=== PATIENT | male | born 1980 | race Caucasian/White ===

== ENCOUNTER 2022-05-20 13:48 | Inpatient (IN) | payer OTHER ==
[~2022-05-20] VITALS: Ht 177.8 cm; Wt 101.0 kg
[2022-05-20] MEDS ORDERED: LORazepam 2 mg/ml vial IM ONE (14:45)
[2022-05-20] MEDS ORDERED: ondansetron/PF 4mg/2ml inj IV ONE (14:55)
[2022-05-20] MEDS ORDERED: LORazepam 2 mg/ml vial IV ONE ×2 (14:55→16:30)
[2022-05-20] MEDS ORDERED: normal saline 1000ML IV soln IVB ONE (15:05)
[2022-05-20 15:18] LABS: BASOPHILS # (AUTO) 0.1 X10'3 (0-0.2); EOSINOPHILS % (AUTO) 0.1 % (0-6); HEMOGLOBIN 16.1 g/dl (14.0-17.9); LYMPHOCYTES # (AUTO) 1.8 X10'3 (1.1-4.8); RED CELL DISTRIBUTION WIDTH 13.7 % (11.5-14.5); WHITE BLOOD COUNT 11.4 X10'3 (4.5-11.0)
[2022-05-20 15:19] LABS: BASOPHILS % (AUTO) 0.9 % (0-1); HEMATOCRIT 47.9 % (42.0-52.0); MEAN CORPUSCULAR HEMOGLOBIN 33.5 PG (27.0-31.0); MEAN CORPUSCULAR HGB CONC 33.6 g/dL (33.0-36.5); MEAN CORPUSCULAR VOLUME 99.9 FL (78-98); MEAN PLATELET VOLUME 7.8 FL (7.4-10.4); MONOCYTES # (AUTO) 1.3 X10'3 (0-0.9); MONOCYTES % (AUTO) 11.1 % (2-12); NEUTROPHILS # (AUTO) 8.2 X10'3 (1.8-7.7); NEUTROPHILS % (AUTO) 71.9 % (42-75); PLATELET COUNT 197 X10'3 (140-440)
[2022-05-20 15:25] LABS: ALANINE AMINOTRANSFERASE 151 U/L (12-78); ALBUMIN 4.7 G/DL (3.4-5.0); ALBUMIN/GLOBULIN RATIO 1.2 (1.1-1.5); ALKALINE PHOSPHATASE 75 IU/L (46-116); ANION GAP 33 (8-16); ASPARTATE AMINO TRANSFERASE 189 U/L (10-37); BILIRUBIN,TOTAL 1.8 MG/DL (0.1-1.0); BLOOD UREA NITROGEN 10 MG/DL (7-18); BUN/CREATININE RATIO 7.5 (5.4-32.0); CHLORIDE 94 MMOL/L (99-107); CREATININE 1.33 MG/DL (0.60-1.10); ETHANOL < 0.010 GM/DL (0.0-0.010); GLUCOSE 143 MG/DL (70-104); LIPASE 356 U/L (73-393); SODIUM 139 MMOL/L (135-145); TOTAL PROTEIN 8.7 G/DL (6.4-8.2); eGFR 59 ML/MIN
[2022-05-20 15:30] LABS: POTASSIUM 3.7 MMOL/L (3.5-5.1)
[2022-05-20 15:31] LABS: TOTAL CARBON DIOXIDE 12.3 MMOL/L (24-32)
--- NOTE | 2022-05-20 16:17 | NUR ---
Pt came in to the ER to try and stop drinking. While in triage the pt had a seizure and was rushed back to the ER. The pt was given ativan and placed on the monitor.
--- NOTE | 2022-05-20 16:18 | NUR ---
the pt stated that he drinks a pint of alcohol a day.
[2022-05-20 16:42] LABS: TOTAL CELLS COUNTED 100
[2022-05-20 16:43] LABS: PLATELET ESTIMATE NORMAL; STOMATOCYTES 1+
[2022-05-20 17:05] LABS: CLARITY,URINE CLOUDY (Clear); COLOR,URINE YELLOW (Yellow); GLUCOSE, URINE NEGATIVE (Neg); KETONES,URINE 15 mg/dl (Neg); LEUKOCYTE ESTERASE ,URINE NEGATIVE (Neg); OCCULT BLOOD,URINE SMALL (Neg); PH,URINE 7.5 (4.8-8.0); PROTEIN,URINE >=300 mg/dl (Neg)
[2022-05-20 17:07] LABS: NITRITES, URINE NEGATIVE (Neg); UA COLLECTION TYPE CLN CATCH MIDSTREAM
[2022-05-20 17:14] LABS: MUCUS STRANDS MANY /LPF (Neg); SQUAMOUS EPITHELIAL CELL,UR FEW /LPF (FEW)
[2022-05-20 17:15] LABS: BACTERIA,URINE 1+ /HPF (Neg)
[2022-05-20 17:16] LABS: RBC,URINE 0-2 /HPF (0-2); WBC,URINE 0-4 /HPF (0-4)
[2022-05-20 17:17] LABS: CAL OXALATE CRYSTALS 1+ /HPF (NEGATIVE)
[2022-05-20 17:18] LABS: URINE AMPHETAMINE SCREEN NEGATIVE (Neg); URINE BARBITUATE SCREEN NEGATIVE (Neg); URINE BENZODIAZEPINES SCREEN NEGATIVE (Neg); URINE CANNABINOID SCREEN NEGATIVE (Neg); URINE COCAINE SCREEN NEGATIVE (Neg); URINE METHADONE SCREEN NEGATIVE (Neg); URINE OPIATE SCREEN NEGATIVE (Neg); URINE PHENCYCLIDINE SCREEN NEGATIVE (Neg)
--- NOTE | 2022-05-20 17:24 | NUR ---
Pt stated that his left ankle has been hurting since last night
[2022-05-20] MEDS ORDERED: thiamine 100mg tablet PO ONE (17:30)
[2022-05-20] MEDS ORDERED: folic acid 1mg tablet PO ONE (17:30)
[2022-05-20] MEDS ORDERED: potassium Cl 20 mEq SR tablet PO PRN (18:15)
[2022-05-20] MEDS ORDERED: acetaminophen 325mg tablet PO PRN (18:15)
[2022-05-20] MEDS ORDERED: magnesium 4gm in 100ml NS 100 ML IV PRN (18:15)
[2022-05-20] MEDS ORDERED: dextrose 50%-water 50ml dispensing syringe IV PRN (18:15)
[2022-05-20] MEDS ORDERED: ondansetron/PF 4mg/2ml inj IV PRN (18:15)
[2022-05-20] MEDS ORDERED: potassium Cl 40MEQ/1/2NS 520ml 520 ML IV PRN (18:15)
[2022-05-20] MEDS ORDERED: magnesium Cl slow-release 64mg tablet PO PRN (18:15)
[2022-05-20] MEDS ORDERED: haloperidol lactate 5mg/ml inj IM PRN (18:15)
[2022-05-20] MEDS ORDERED: LORazepam 2 mg/ml vial IV PRN (18:15)
--- NOTE | 2022-05-20 18:33 | NUR ---
TALKED TO SIMON ABOUT ADMISSION ON BED 16
[2022-05-20 18:45] LABS: MAGNESIUM 1.2 MG/DL (1.5-2.4)
[2022-05-20] MEDS: HYDROcodone/acetaminophen 5mg/325mg tablet PO PRN ×2 (19:40→21:51)
[2022-05-20] MEDS: LORazepam 2 mg/ml vial IV PRN ×2 (19:40→22:47)
[2022-05-20] MEDS: normal saline 1000ml 1,000 ML IV SCH (19:48)
[2022-05-20] MEDS: thiamine 100mg/ml 2ml inj. IV SCH (20:44)
[2022-05-20] MEDS: K and/or MAG REPLACEMENT MC SCH (20:44)
--- NOTE | 2022-05-20 22:53 | NUR ---
PT MOVED TO HOSPITAL BED, PT GIVEN 2 MG ATIVAN
[2022-05-20 23:32] LABS: ALBUMIN 3.5 G/DL (3.4-5.0); ANION GAP 12 (8-16); BLOOD UREA NITROGEN 8 MG/DL (7-18); BUN/CREATININE RATIO 8.4 (5.4-32.0); CALCIUM 7.6 MG/DL (8.5-10.1); CHLORIDE 99 MMOL/L (99-107); CREATININE 0.95 MG/DL (0.60-1.10); GLUCOSE 117 MG/DL (70-104); POTASSIUM 3.2 MMOL/L (3.5-5.1); SODIUM 137 MMOL/L (135-145); TOTAL CARBON DIOXIDE 26.5 MMOL/L (24-32); eGFR 87 ML/MIN
[2022-05-21] MEDS: LORazepam 2 mg/ml vial IV PRN ×5 (02:18→20:32)
[2022-05-21] MEDS: HYDROcodone/acetaminophen 5mg/325mg tablet PO PRN ×4 (04:35→19:19)
[2022-05-21 05:30] LABS: BASOPHILS % (AUTO) 0.6 % (0-1); EOSINOPHILS % (AUTO) 0.6 % (0-6); HEMOGLOBIN 12.8 g/dl (14.0-17.9); LYMPHOCYTES # (AUTO) 0.6 X10'3 (1.1-4.8); LYMPHOCYTES % (AUTO) 13.2 % (21-51); MEAN CORPUSCULAR HEMOGLOBIN 33.3 PG (27.0-31.0); MEAN CORPUSCULAR HGB CONC 34.6 g/dL (33.0-36.5); MEAN CORPUSCULAR VOLUME 96.1 FL (78-98); MEAN PLATELET VOLUME 7.3 FL (7.4-10.4); MONOCYTES # (AUTO) 0.4 X10'3 (0-0.9); MONOCYTES % (AUTO) 10.3 % (2-12); NEUTROPHILS # (AUTO) 3.2 X10'3 (1.8-7.7); NEUTROPHILS % (AUTO) 75.3 % (42-75); PLATELET COUNT 122 X10'3 (140-440); RED BLOOD COUNT 3.85 X10'6 (4.70-6.10); RED CELL DISTRIBUTION WIDTH 13.8 % (11.5-14.5); WHITE BLOOD COUNT 4.3 X10'3 (4.5-11.0)
[2022-05-21 05:41] LABS: ALBUMIN 3.3 G/DL (3.4-5.0); ANION GAP 13 (8-16); BLOOD UREA NITROGEN 7 MG/DL (7-18); CALCIUM 7.4 MG/DL (8.5-10.1); CHLORIDE 102 MMOL/L (99-107); CREATININE 0.88 MG/DL (0.60-1.10); GLUCOSE 117 MG/DL (70-104); MAGNESIUM 1.1 MG/DL (1.5-2.4); SODIUM 140 MMOL/L (135-145); TOTAL CARBON DIOXIDE 24.9 MMOL/L (24-32); eGFR > 90 ML/MIN
[2022-05-21] MEDS: normal saline 1000ml 1,000 ML IV SCH ×3 (07:41→20:00)
[2022-05-21] MEDS: folic acid 1mg/0.2ml inj IV SCH (08:00)
[2022-05-21 08:28] VITALS: BP 139/95
[2022-05-21] MEDS: potassium Cl 20 mEq SR tablet PO PRN ×3 (08:46→19:20)
[2022-05-21] MEDS: K and/or MAG REPLACEMENT MC SCH ×2 (08:47→19:21)
[2022-05-21] MEDS: thiamine 100mg/ml 2ml inj. IV SCH ×3 (08:47→20:24)
[2022-05-21] MEDS ORDERED: GABA-530 PO (14:21)
[2022-05-21] MEDS ORDERED: AMLO10TA13 PO (14:21)
[2022-05-21] MEDS ORDERED: MULT-1085 PO (14:23)
[2022-05-21 15:35] VITALS: BP 141/96
[2022-05-21 18:00] VITALS: BP 141/100
--- NOTE | 2022-05-21 18:40 | NUR ---
Patient in room PCU 3016. I have received report from PRETTY GRIMES and had the opportunity to ask questions and assume patient care.
[2022-05-21 22:00] VITALS: BP 149/93
[2022-05-22] MEDS: HYDROcodone/acetaminophen 5mg/325mg tablet PO PRN ×3 (01:42→19:05)
[2022-05-22 01:59] VITALS: BP 156/106
--- NOTE | 2022-05-22 05:20 | NUR ---
MESSAGE: 2228M HOW, LEXIE 41 HERE FOR ETOH/SZ IS HAVIGN BACK PAIN. HE HAS NORCO 5 ORDERED BUT PAIN IS MORE NOW. CAN HE HAVE NORCO10? THANK YOU. #[id number] MEET
[2022-05-22] MEDS ORDERED: HYDROcodone/acetaminophen 10/325mg tab PO ONE (05:30)
[2022-05-22 06:00] VITALS: BP 153/100
--- NOTE | 2022-05-22 06:17 | NUR ---
PT STATES HIS LOWER BACK PAIN IS INCREASING. THIS MORNING HE WASN'T ABLE TO SIT UP DUE TO PAIN. PT REQUESTED TO HAVE XRAY OF BACK. I PASSED ON TO DAY RN DURING SHIFT CHANGE.
--- NOTE | 2022-05-22 06:20 | NUR ---
Problems reprioritized. Patient report given, questions answered & plan of care reviewed with PRETTY GRIMES.
[2022-05-22 06:45] LABS: BASOPHILS % (AUTO) 0.4 % (0-1); EOSINOPHILS # (AUTO) 0.1 X10'3 (0-0.9); EOSINOPHILS % (AUTO) 2.2 % (0-6); HEMATOCRIT 36.5 % (42.0-52.0); HEMOGLOBIN 12.7 g/dl (14.0-17.9); LYMPHOCYTES # (AUTO) 0.7 X10'3 (1.1-4.8); LYMPHOCYTES % (AUTO) 13.8 % (21-51); MEAN CORPUSCULAR HEMOGLOBIN 33.7 PG (27.0-31.0); MEAN CORPUSCULAR HGB CONC 34.8 g/dL (33.0-36.5); MEAN CORPUSCULAR VOLUME 96.8 FL (78-98); MEAN PLATELET VOLUME 7.5 FL (7.4-10.4); MONOCYTES # (AUTO) 0.5 X10'3 (0-0.9); NEUTROPHILS # (AUTO) 3.8 X10'3 (1.8-7.7); NEUTROPHILS % (AUTO) 73.6 % (42-75); PLATELET COUNT 126 X10'3 (140-440); RED BLOOD COUNT 3.77 X10'6 (4.70-6.10); RED CELL DISTRIBUTION WIDTH 13.4 % (11.5-14.5); WHITE BLOOD COUNT 5.1 X10'3 (4.5-11.0)
[2022-05-22 07:08] LABS: ALBUMIN 3.3 G/DL (3.4-5.0); ANION GAP 11 (8-16); BLOOD UREA NITROGEN 6 MG/DL (7-18); BUN/CREATININE RATIO 7.7 (5.4-32.0); CALCIUM 7.5 MG/DL (8.5-10.1); CHLORIDE 104 MMOL/L (99-107); CREATININE 0.78 MG/DL (0.60-1.10); GLUCOSE 100 MG/DL (70-104); MAGNESIUM 1.7 MG/DL (1.5-2.4); SODIUM 138 MMOL/L (135-145); TOTAL CARBON DIOXIDE 22.9 MMOL/L (24-32); eGFR > 90 ML/MIN
[2022-05-22] MEDS: K and/or MAG REPLACEMENT MC SCH ×2 (08:00→19:17)
[2022-05-22] MEDS ORDERED: MVI, adult No.4 with vit. K 10 ML in dextrose 5% water 500ml 500 ML IV SCH ×2 (08:00)
[2022-05-22] MEDS: multivitamins, therapeutics tablet PO SCH (09:29)
[2022-05-22] MEDS: amLODIPine 5mg tablet PO SCH (09:30)
[2022-05-22] MEDS: gabapentin 100mg capsule PO PRN ×2 (09:30→20:52)
[2022-05-22] MEDS: folic acid 1mg/0.2ml inj IV SCH (09:30)
[2022-05-22] MEDS: normal saline 1000ml 1,000 ML IV SCH ×2 (09:31→20:59)
[2022-05-22] MEDS: thiamine 100mg/ml 2ml inj. IV SCH ×3 (09:31→20:52)
[2022-05-22] MEDS: LORazepam 2 mg/ml vial IV PRN (09:36)
[2022-05-22 09:39] VITALS: BP 146/102
--- NOTE | 2022-05-22 10:19 | NUR ---
paged Brian Damico re: Pt complaining of severe back pain and would like an xray.
[2022-05-22] MEDS: chlordiazePOXIDE 25mg capsule PO SCH (19:04)
[2022-05-22 20:04] VITALS: BP 146/93
[2022-05-22 22:00] VITALS: BP 142/93
[2022-05-23] MEDS: chlordiazePOXIDE 25mg capsule PO SCH ×4 (01:22→19:37)
[2022-05-23 01:40] VITALS: BP 151/105
[2022-05-23 06:00] VITALS: BP 150/102
--- NOTE | 2022-05-23 06:17 | NUR ---
Problems reprioritized. Patient report given, questions answered & plan of care reviewed with PRETTY GRIMES.
[2022-05-23 07:19] LABS: BASOPHILS % (AUTO) 0.7 % (0-1); EOSINOPHILS # (AUTO) 0.1 X10'3 (0-0.9); HEMATOCRIT 38.1 % (42.0-52.0); HEMOGLOBIN 13.5 g/dl (14.0-17.9); LYMPHOCYTES # (AUTO) 0.8 X10'3 (1.1-4.8); LYMPHOCYTES % (AUTO) 13.7 % (21-51); MEAN CORPUSCULAR HEMOGLOBIN 34.4 PG (27.0-31.0); MEAN CORPUSCULAR HGB CONC 35.5 g/dL (33.0-36.5); MEAN CORPUSCULAR VOLUME 96.8 FL (78-98); MEAN PLATELET VOLUME 7.4 FL (7.4-10.4); MONOCYTES # (AUTO) 0.8 X10'3 (0-0.9); MONOCYTES % (AUTO) 13.8 % (2-12); NEUTROPHILS # (AUTO) 3.9 X10'3 (1.8-7.7); NEUTROPHILS % (AUTO) 69.8 % (42-75); PLATELET COUNT 147 X10'3 (140-440); RED BLOOD COUNT 3.94 X10'6 (4.70-6.10); RED CELL DISTRIBUTION WIDTH 13.4 % (11.5-14.5); WHITE BLOOD COUNT 5.5 X10'3 (4.5-11.0)
[2022-05-23 07:25] LABS: ALBUMIN 3.3 G/DL (3.4-5.0); ANION GAP 15 (8-16); BLOOD UREA NITROGEN 7 MG/DL (7-18); BUN/CREATININE RATIO 10.1 (5.4-32.0); CALCIUM 8.8 MG/DL (8.5-10.1); CHLORIDE 100 MMOL/L (99-107); CREATININE 0.69 MG/DL (0.60-1.10); GLUCOSE 95 MG/DL (70-104); MAGNESIUM 1.5 MG/DL (1.5-2.4); POTASSIUM 3.9 MMOL/L (3.5-5.1); SODIUM 136 MMOL/L (135-145); TOTAL CARBON DIOXIDE 21.3 MMOL/L (24-32); eGFR > 90 ML/MIN
[2022-05-23] MEDS: K and/or MAG REPLACEMENT MC SCH ×2 (08:00→20:00)
--- NOTE | 2022-05-23 08:26 | NUR ---
Initial: Pt admitted w/ chronic alcoholism and alcohol withdrawal per EMR. Currently on Heart healthy diet w/ mostly 75-100% intake of meals meeting est needs. Recommend liberalizing to Regular diet given absolutely no mention of any cardiac hx in EMR. [facility] [place] 05/20. Will continue to monitor. Recs 1. Liberalize to Regular diet; no cardiac hx in EMR 2. Routine thiamine, folic acid, MVI for EtOH hx 3. Bowel care per rx 4. Weekly wts Addendum: 05/23/22 at [address] Amended: Links added.
[2022-05-23] MEDS: thiamine 100mg/ml 2ml inj. IV SCH ×2 (08:31→13:57)
[2022-05-23] MEDS: multivitamins, therapeutics tablet PO SCH (08:31)
[2022-05-23] MEDS: folic acid 1mg/0.2ml inj IV SCH (08:31)
[2022-05-23] MEDS: amLODIPine 5mg tablet PO SCH (08:32)
[2022-05-23] MEDS: normal saline 1000ml 1,000 ML IV SCH ×2 (08:33→16:15)
[2022-05-23] MEDS: HYDROcodone/acetaminophen 5mg/325mg tablet PO PRN ×2 (08:41→13:58)
--- NOTE | 2022-05-23 09:50 | NUR ---
Met with patient in regards to alcohol use and to see if patient wanted any resources for treatment options. Patient has a plan for rehab in [place] and has been in contact with them already. Declined resources from me.
[2022-05-23 14:34] VITALS: BP 142/104
--- NOTE | 2022-05-23 16:53 | NUR ---
paged Dr. Torres re: xray of back shows: Differential includes acute or chronic compression fracture. Consider further evaluation with MRI of the thoracic spine."
[2022-05-23 18:00] VITALS: BP 142/100
--- NOTE | 2022-05-23 18:30 | NUR ---
Patient in room PCU 3016. I have received report from rey and had the opportunity to ask questions and assume patient care.
--- NOTE | 2022-05-23 18:40 | NUR ---
Problems reprioritized. Patient report given, questions answered & plan of care reviewed with FRAN Medina.
[2022-05-23] MEDS: sennosides/docusate sodium tablet PO SCH (19:37)
[2022-05-23] MEDS: docusate sod 100mg capsule PO SCH (19:37)
[2022-05-24] MEDS: chlordiazePOXIDE 25mg capsule PO SCH ×2 (00:51→08:12)
[2022-05-24] MEDS: HYDROcodone/acetaminophen 5mg/325mg tablet PO PRN ×2 (00:51→09:01)
[2022-05-24] MEDS: normal saline 1000ml 1,000 ML IV SCH ×2 (01:00→08:11)
[2022-05-24 01:26] VITALS: BP 139/93
[2022-05-24 06:00] VITALS: BP 139/91
--- NOTE | 2022-05-24 06:14 | NUR ---
reviewed [facility] assessment and in agreement.
[2022-05-24 07:09] LABS: BASOPHILS # (AUTO) 0.1 X10'3 (0-0.2); BASOPHILS % (AUTO) 1.1 % (0-1); EOSINOPHILS # (AUTO) 0.2 X10'3 (0-0.9); EOSINOPHILS % (AUTO) 3.2 % (0-6); HEMATOCRIT 39.1 % (42.0-52.0); HEMOGLOBIN 13.9 g/dl (14.0-17.9); LYMPHOCYTES # (AUTO) 0.9 X10'3 (1.1-4.8); LYMPHOCYTES % (AUTO) 17.4 % (21-51); MEAN CORPUSCULAR HEMOGLOBIN 34.5 PG (27.0-31.0); MEAN CORPUSCULAR HGB CONC 35.6 g/dL (33.0-36.5); MEAN CORPUSCULAR VOLUME 96.8 FL (78-98); MEAN PLATELET VOLUME 7.4 FL (7.4-10.4); MONOCYTES % (AUTO) 19.9 % (2-12); NEUTROPHILS % (AUTO) 58.4 % (42-75); PLATELET COUNT 188 X10'3 (140-440); RED BLOOD COUNT 4.03 X10'6 (4.70-6.10); RED CELL DISTRIBUTION WIDTH 13.5 % (11.5-14.5)
[2022-05-24 07:23] LABS: ALBUMIN 3.2 G/DL (3.4-5.0); ANION GAP 11 (8-16); BLOOD UREA NITROGEN 10 MG/DL (7-18); BUN/CREATININE RATIO 13.5 (5.4-32.0); CALCIUM 8.9 MG/DL (8.5-10.1); CHLORIDE 100 MMOL/L (99-107); CREATININE 0.74 MG/DL (0.60-1.10); GLUCOSE 103 MG/DL (70-104); MAGNESIUM 1.6 MG/DL (1.5-2.4); POTASSIUM 3.7 MMOL/L (3.5-5.1); SODIUM 134 MMOL/L (135-145); eGFR > 90 ML/MIN
[2022-05-24] MEDS: K and/or MAG REPLACEMENT MC SCH (08:00)
[2022-05-24] MEDS ORDERED: thiamine 100mg tablet PO SCH (08:00)
[2022-05-24] MEDS: docusate sod 100mg capsule PO SCH (08:00)
[2022-05-24] MEDS: multivitamins, therapeutics tablet PO SCH (08:11)
[2022-05-24 08:12] VITALS: BP_SYST 139
[2022-05-24] MEDS: gabapentin 100mg capsule PO PRN (08:12)
[2022-05-24] MEDS: sennosides/docusate sodium tablet PO SCH (08:12)
[2022-05-24] MEDS: amLODIPine 5mg tablet PO SCH (08:12)
--- NOTE | 2022-05-24 11:02 | NUR ---
paged Dr. Torres re: MRI shows "T10, T11, and T12 vertebral body superior endplate compression fracture with mild loss of vertebral bodies height.
[2022-05-24] MEDS ORDERED: PROP40TA7 PO (11:21)
[2022-05-24] MEDS ORDERED: CHLO25CA10 PO (11:21)
--- NOTE | 2022-05-24 13:49 | NUR ---
pt discharged in stable condition via wheelchair to car. IV and tele discontinued. discharge instructions and education reviewed with pt. reinforced the importance of sobriety and attending AA meetings. pt acknowledges this.
[2022-05-25] MEDS ORDERED: folic acid 1mg tablet PO SCH (08:00)
== END 2022-05-24 13:56 | disposition home or self-care (01) | DRG 100 ==
LOC: ER 13:49 → ED HOLD 18:20 → EDBEDREQ 05-21 04:20 → PCU 3S 05-21 08:19
PROVIDERS: ADMIT Internal Medicine; ATTEND Internal Medicine
DX: G40.89 Other seizures (principal); N17.0 Acute kidney failure with tubular necrosis; M48.54XA Collapsed vertebra, not elsewhere classified, thoracic region, initial encounter for fracture; F10.239 Alcohol dependence with withdrawal, unspecified; S82.402A Unspecified fracture of shaft of left fibula, initial encounter for closed fracture; X58.XXXA Exposure to other specified factors, initial encounter; E87.6 Hypokalemia; F41.9 Anxiety disorder, unspecified; I10 Essential (primary) hypertension; M54.9 Dorsalgia, unspecified; M79.672 Pain in left foot; R00.0 Tachycardia, unspecified; Y93.89 Activity, other specified; Y92.89 Other specified places as the place of occurrence of the external cause; Y99.8 Other external cause status; Z28.310 Unvaccinated for COVID-19; Z79.899 Other long term (current) drug therapy
CPT/HCPCS: 36415; 71045; 72100; 72146; 73610; 80048; 80053; 80305; 80320; 81001; 82009; 82948; 83690; 83735; 84145; 85007; 85025; 87081; 93005; 96361; 96372; 96374; 96375; 97116; 97161; 97530; 99285; A4615; A6258; G0378; J2060; J2405; J3411; J3475; J3490; J7030; J7040; L4360